=== PATIENT | male | born 1995 | race African-American/Black ===

== ENCOUNTER 2024-09-18 16:04 | Emergency (ER) | payer MEDICAID ==
[~2024-09-18] VITALS: Ht 190.5 cm; Wt 72.6 kg
[2024-09-18 16:20] VITALS: TEMP 98.8
[2024-09-18] MEDS ORDERED: ALBU18HF2 INH (18:38)
[2024-09-18 19:04] VITALS: BP 135/77; O2SAT 99
== END 2024-09-18 19:00 | disposition home or self-care (01) ==
LOC: ER 16:08
DX: J06.9 Acute upper respiratory infection, unspecified (principal); J45.909 Unspecified asthma, uncomplicated

== ENCOUNTER 2025-03-08 12:41 | Emergency (ER) | payer MEDICAID, OTHER ==
[~2025-03-08] VITALS: Ht 190.5 cm; Wt 88.5 kg
[~2025-03-08 12:41] MED LIST: ALBU18HF2 INH
[2025-03-08 12:57] VITALS: TEMP 98.7
[2025-03-08] MEDS ORDERED: ALBU18HF2 INH (13:16)
[2025-03-08] MEDS ORDERED: PRED20TA PO (13:16)
[2025-03-08] MEDS ORDERED: dexaMETHasone SOD PHOSPHATE 1 ML ONE (13:17)
[2025-03-08] MEDS ORDERED: KETOROLAC TROMETHAMINE 15 MG/ML VIAL ONE (13:17)
[2025-03-08] MEDS: dexaMETHasone SOD PHOSPHATE 10 MG/ML VIAL IM ONE (13:25)
[2025-03-08] MEDS: KETOROLAC TROMETHAMINE 15 MG/ML VIAL IM ONE (13:25)
[2025-03-08 13:59] VITALS: BP 135/75; O2SAT 98
== END 2025-03-08 13:57 | disposition home or self-care (01) ==
LOC: ER 12:46
DX: S69.81XA Other specified injuries of right wrist, hand and finger(s), initial encounter (principal); J06.9 Acute upper respiratory infection, unspecified; R05.9 Cough, unspecified; R09.81 Nasal congestion; J45.909 Unspecified asthma, uncomplicated; Z79.52 Long term (current) use of systemic steroids; Z60.2 Problems related to living alone; Y04.0XXA Assault by unarmed brawl or fight, initial encounter; Y93.89 Activity, other specified; Y92.89 Other specified places as the place of occurrence of the external cause; Y99.8 Other external cause status
CPT/HCPCS: 99284; 96372 ×2; 73130; J1885; J1100

== ENCOUNTER 2025-08-10 16:04 | Emergency (ER) | payer SELFPAY ==
[~2025-08-10] VITALS: Ht 190.5 cm; Wt 97.1 kg
[~2025-08-10 16:04] MED LIST changes: +PRED20TA PO
[2025-08-10] MEDS ORDERED: IPRATROPIUM NEB FS 0.5 MG/2.5 ML AMPUL.NEB ONE (16:27)
[2025-08-10] MEDS ORDERED: ALBUTEROL FS 2.5 MG/3 ML VIAL.NEB ONE (16:27)
[2025-08-10 16:30] VITALS: O2SAT 98
[2025-08-10] MEDS: IPRATROPIUM NEB FS 0.5 MG/2.5 ML AMPUL.NEB NEB ONE (16:30)
[2025-08-10] MEDS: ALBUTEROL FS 2.5 MG/3 ML VIAL.NEB NEB ONE (16:30)
[2025-08-10 16:45] VITALS: O2SAT 100
[2025-08-10] MEDS ORDERED: PRED20TA PO (17:18)
[2025-08-10] MEDS ORDERED: ALBU1.257 NEB (17:18)
[2025-08-10] MEDS ORDERED: ALBU18HF2 INH (17:18)
[2025-08-10] MEDS ORDERED: NEBU-225 MC (17:18)
[2025-08-10 17:34] VITALS: BP 142/71; TEMP 98.4; O2SAT 99
== END 2025-08-10 17:30 | disposition home or self-care (01) ==
LOC: ER 16:04
DX: J45.901 Unspecified asthma with (acute) exacerbation (principal); Z79.52 Long term (current) use of systemic steroids
CPT/HCPCS: 99283; 94640; J7512